=== PATIENT | male | born 1985 | race Hispanic/Latino ===

== ENCOUNTER 2018-01-10 09:16 | Emergency (ER) | payer OTHER ==
[~2018-01-10] VITALS: Ht 175.3 cm; Wt 115.2 kg
--- NOTE | 2018-01-10 10:03 | ED CARDIAC/CP/PALPITATIONS ---
History of Present Illness General Chief Complaint: General Adult Stated Complaint: CHEST PRESSURE, X 2 DAYS Source: patient Exam Limitations: no limitations Vital Signs & Intake/Output Vital Signs & Intake/Output Vital Signs Date Time Temp Pulse Resp B/P B/P Pulse O2 O2 Flow FiO2 Mean Ox Delivery Rate 01/10 1120 97.9 74 18 148/70 98 Room Air 01/10 1038 98 Room Air 01/10 0926 98.3 84 16 154/88 99 Room Air Allergies Coded Allergies: shellfish derived (Severe, ANAPHYLAXIS 04/27/16) Reconcile Medications No Known Home Medications Triage Note: 32 Y/O MALE C/O NOT FEELING WELL SINCE TUESDAY. STATES HE STARTED TO FEEL LIKE HE WAS "COMING DOWN WITH A COLD". WAS "ROUGH HOUSING WITH FAMILY AND I FELT LIKE I COULDN'T CATCH MY BREATH". STATES SYMPTOMS RESOLVED ON OWN BUT THEN RETURNED WHILE PLAYING BASKETBALL LATER IN THE SAME DAY. WAS "FINE" YESTERDAY - TODAY FEELS "A LITTLE PRESSURE ON AND OFF". DENIES PAIN. DENIES SOB. DENIES N/V/D. REPORTS "NORMAL" APPETITE/PO INTAKE. AFEBRILE. EKG COMPLETED AND SIGNED BY . Triage Nurses Notes Reviewed? yes Onset: Abrupt Duration: day(s): (few), intermittent Timing: recent history Quality/Severity: moderate Location: central Activities at Onset: none HPI: 32-year-old male comes into the emergency room for further evaluation chest pressure. 5 days ago patient reports some scratchy throat. 2 days later he started to experience some chest pressure lightheaded dizziness and feeling faint when he was worsening his cousin. The following day he laid basketball was experiencing chest pressure in the same symptoms as the forearm. Better with rest. No syncopal episodes. No prior history. Denies any family history of significant coronary disease less then 55 years and he is aware. Nonsmoker. Denies any other associated symptoms. Patient had some associated shortness of breath with any basketball. (Geovani Hawkins) Past History Travel History Traveled to [place] past 21 day No Medical History Any Pertinent Medical History? see below for history Neurological: NONE EENT: NONE Cardiovascular: NONE Respiratory: NONE Gastrointestinal: NONE Hepatic: NONE Renal: NONE Musculoskeletal: NONE Psychiatric: NONE Endocrine: hypothyroidism Blood Disorders: NONE Cancer(s): NONE Surgical History Surgical History: none Psychosocial History Who do you live with Spouse Services at Home None What is your primary language [place]ian Tobacco Use: Never used Family History Hx Contributory? No (Geovani Hawkins) Review of Systems Review of Systems Constitutional: Reports: see HPI. EENTM: Reports: no symptoms. Respiratory: Reports: see HPI. Cardiovascular: Reports: see HPI. GI: Reports: no symptoms. Genitourinary: Reports: no symptoms. Musculoskeletal: Reports: no symptoms. Skin: Reports: no symptoms. Neurological/Psychological: Reports: no symptoms. Hematologic/Endocrine: Reports: no symptoms. Immunologic/Allergic: Reports: no symptoms. All Other Systems: Reviewed and Negative (Geovani Hawkins) Physical Exam Physical Exam General Appearance: well developed/nourished, alert, awake Head: atraumatic Eyes: Bilateral: normal appearance. Ears, Nose, Throat: normal ENT inspection, hearing grossly normal Neck: normal inspection Respiratory: normal breath sounds, no respiratory distress Cardiovascular: regular rate/rhythm Back: normal inspection Extremities: normal inspection Neurologic/Psych: awake, alert, oriented x 3 Skin: intact, normal color Core Measures ACS in differential dx? Yes CVA/TIA Diagnosis No Sepsis Present: No Sepsis Focused Exam Completed? No All Positive = PERC Ruled Out: Positive: age < 50 years, heart rate < 100 bpm, O2 sat > 94%, no hemoptysis, no hormone use, no prior DVT or PE, no unilateral leg swellin, no surgery/trauma w/ in 4w. Wells Criteria Score: 0 (Geovani Hawkins) Progress Differential Diagnosis: AMI, costochondritis, musculoskeletal pain, myocarditis, pancreatitis, pericarditis, pneumonia, pneumothorax, pulmonary embolism, PUD/ GERD, unstable angina Plan of Care: Orders Procedure Date/time Status TROPONIN LEVEL 01/10 1002 Complete COMPREHENSIVE METABOLIC PANEL 01/10 1002 Complete CBC WITHOUT DIFFERENTIAL 01/10 1002 Complete EKG 01/10 0918 Active Laboratory Tests 01/10/18 1019: Anion Gap 13, Estimated GFR > 60, BUN/Creatinine Ratio 18.9, Glucose 109 H, Calcium 9.6, Total Bilirubin 0.6, AST 29, ALT 48, Alkaline Phosphatase 84, Troponin I < 0.01, Total Protein 7.7, Albumin 4.3, Globulin 3.4, Albumin/ Globulin Ratio 1.3, CBC w Diff NO MAN DIFF REQ, RBC 5.62, MCV 78.3 L, MCH 26.1 L, MCHC 33.3, RDW 13.9, MPV 9.4, Gran % 71.6, Lymphocytes % 20.7, Monocytes % 5.0, Eosinophils % 2.1, Basophils % 0.6, Absolute Granulocytes 4.8, Absolute Lymphocytes 1.4, Absolute Monocytes 0.3, Absolute Eosinophils 0.1, Absolute Basophils 0 Diagnostic Imaging: Viewed by Me: Radiology Read. Discussed w/RAD: Radiology Read. Radiology Impression: PATIENT: QUETA LOCK PRESENT AGE: 32 PATIENT ACCOUNT NO: [id number] : 85 LOCATION: [facility] ORDERING PHYSICIAN: Geovani SALCEDO SERVICE DATE: 01/10/18 EXAM TYPE : RAD - XRY-CHEST XRAY, TWO VIEWS EXAMINATION: XR CHEST CLINICAL INFORMATION: Chest pressure, tightness COMPARISON: 04/27/2016 TECHNIQUE: 2 views of the chest were obtained. FINDINGS: The lungs are clear with no focal consolidation. No evidence of pneumothorax, pulmonary edema, or pleural effusions. The cardiomediastinal silhouette is unremarkable. No acute osseous findings. IMPRESSION: No acute cardiopulmonary findings. DICTATED BY: Rigo Gonsales MD DATE/TIME DICTATED:01/10/181049 MANAGER PROPERTY:KULDEEP DATE/TIME TRANSCRIBED:01/10/181049 CONFIDENTIAL, DO NOT COPY WITHOUT APPROPRIATE AUTHORIZATION. <Electronically signed in Other Vendor System> SIGNED BY: Rigo Gonsales MD 01/10/181055 Initial ED EKG: normal sinus rhythm, rate (78) Comments: 01/10/2018 11:50:01 AM Patient clinically looks well. Patient is in no apparent distress. Patient is nontoxic-appearing. Actively no chest pain here in the emergency room or chest pain today. Low suspicion for pulmonary embolism. PERC NEGATIVE . Patient was referred to cardiology for outpatient stress test. She has been chest pain-free here in the emergency room. Case discussed with dr roque. (Jeovany SALCEDO,Geovani) Departure Departure Disposition: HOME OR SELF CARE Condition: Stable Clinical Impression Primary Impression: Chest pressure Referrals: Sebastian Jimenez MD Patient Has No Primary Care Dr (PCP/Family) Additional Instructions: Follow-up with desulfurizer machine provided. Return if any concerns worsening symptoms. Return if any recurrent chest pain. Please go over all results of today's visit with your primary care doctor. Contact your primary care doctor to let them know you were here in the emergency room. There may be nonspecific findings which may not be related to your visit today here in the emergency room but may require further evaluation and chronic monitoring by your primary care doctor. If you had a laceration today the chance of foreign body always remains. You should follow-up with your primary care doctor for recheck in 3-5 days for a wound check. If you had an x-ray done there is a chance that a fracture could have been missed on initial read and you should follow-up with your primary care doctor for repeat x-rays if symptoms persist. If your blood pressure was elevated here in the emergency room please have rechecked by [facility] primary care doctor within the next 48. If you were prescribed a narcotic here in the emergency room or any type of controlled substances you're not allowed to drive while taking this medication or operate any type of heavy machinery. Narcotics can make you feel lightheaded dizziness nausea and can cause constipation. You may need to greens picker a stool softener. Thank you for choosing [facility] emergency room. Please return to the emergency room immediately if you have any other concerns worsening of symptoms. Departure Forms: Customer Survey General Discharge Information Prescriptions: Current Visit Scripts No Known Home Medications (Geovani Hawkins) PA/DENSITOMETER READER Co-Sign Statement Statement: ED Attending supervision documentation- [] I saw and evaluated the patient. I have also reviewed all the pertinent lab results and diagnostic results. I agree with the findings and the plan of care as documented in the PA's/DENSITOMETER READER's documentation. [X] I have reviewed the ED Record and agree with the PA's/DENSITOMETER READER's documentation. [] Additions or exceptions (if any) to the PAs/DENSITOMETER READER's note and plan are summarized below: [] (Meche PALMER,Gaetano Abdi) Critical Care Note Critical Care Note Critical Care Time: non-applicable (Geovani Hawkins)
[2018-01-10 10:29] LABS: ABSOLUTE BASOPHIL COUNT 0 /CUMM (0.0-0.2); ABSOLUTE EOSINOPHIL COUNT 0.1 /CUMM (0.0-0.7); ABSOLUTE GRANULOCYTE CT 4.8 /CUMM (1.4-6.5); ABSOLUTE LYMPH COUNT 1.4 /CUMM (1.2-3.4); ABSOLUTE MONOCYTE COUNT 0.3 /CUMM (0.10-0.60); BASOPHIL % 0.6 % (0.0-2.0); EOSINOPHIL % 2.1 % (0-5); GRANULOCYTE % 71.6 % (42.2-75.2); MEAN CORPUSCULAR HGB 26.1 PG (27.0-31.0); MEAN CORPUSCULAR HGB CONC 33.3 G/DL (33.0-37.0); MEAN CORPUSCULAR VOLUME 78.3 FL (80.0-94.0); MEAN PLATELET VOLUME 9.4 FL (7.4-10.4); PLATELET COUNT 269 /CUMM (130-400); RBC DISTRIBUTION WIDTH 13.9 % (11.5-14.5); RED BLOOD CELL CT 5.62 /CUMM (4.70-6.10); WHITE BLOOD CELL COUNT 6.6 /CUMM (4.8-10.8)
--- NOTE | 2018-01-10 10:56 | RADIOLOGY REPORT ---
EXAMINATION: XR CHEST CLINICAL INFORMATION: Chest pressure, tightness COMPARISON: 04/27/2016 TECHNIQUE: 2 views of the chest were obtained. FINDINGS: The lungs are clear with no focal consolidation. No evidence of pneumothorax, pulmonary edema, or pleural effusions. The cardiomediastinal silhouette is unremarkable. No acute osseous findings. IMPRESSION: No acute cardiopulmonary findings.
[2018-01-10 11:20] VITALS: BP 148/70
== END 2018-01-10 11:21 ==
LOC: ERH 09:16
PROVIDERS: Physician Assistant Medical
DX: R07.89 Other chest pain (principal)
CPT/HCPCS: 71046; 93005; 93010